=== PATIENT | male | born 1985 | race Caucasian/White ===

== ENCOUNTER 2021-07-06 15:51 | Emergency (ER) | payer SELFPAY ==
[~2021-07-06] VITALS: Ht 170.2 cm; Wt 124.9 kg
[2021-07-06 16:25] VITALS: BP 152/105
--- NOTE | 2021-07-06 16:37 | NUR ---
EKG DONE ER MD GAVE OK FOR PT TO WAIT IN ER LOBBY
--- NOTE | 2021-07-06 17:10 | NUR ---
PER DWIGHT, RADIOLOGY, CALLED FOR PT IN THE LOBBY WITH NO RESPONSE.
--- NOTE | 2021-07-06 17:10 | NUR ---
PATIENT ELOPED FROM FACILITY. DISCHARGE INSTRUCTIONS NOT GIVEN TO PATIENT. DR. LOVING NOTIFIED.
[2021-07-06] MEDS ORDERED: DICYCLOMINE HCL LIQUID 20 MG, ALUMINUM HYD/MAG/SIMETHICONE 30 ML, LIDOCAINE VISCOUS 2% ... PO ONE ×3 (17:30)
--- NOTE | 2021-07-06 19:08 | NUR ---
Delaney woo in EDM - 07/06/21 at 1909 by MEDRJJ PATIENT ELOPED FROM FACILITY. DISCHARGE INSTRUCTIONS NOT GIVEN TO PATIENT. DR. LOVING NOTIFIED.
== END 2021-07-06 17:10 | disposition left against medical advice (07) ==
LOC: MED 15:51
DX: R07.9 Chest pain, unspecified (principal)
CPT/HCPCS: 93005; 99283